=== PATIENT | female | born 1950 | race Caucasian/White ===

== ENCOUNTER 2017-11-20 18:03 | Observation (INO) | payer OTHER ==
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
[2017-11-20] MEDS ORDERED: ACETAMINOPHEN 500 MG TABLET (FP) PO ONE (19:55)
--- NOTE | 2017-11-20 20:22 | PDOC ---
Attending Attestation - Resident Resident Name: Joi Edward - ED Attending Attestation I have performed the following: I have examined & evaluated the patient, The case was reviewed & discussed with the resident, I agree w/resident's findings & plan, Exceptions are as noted <Stevenson Zhang - Last Filed: 11/20/17 20:21> - HPI HPI: 11/20/17 22:28 The patient is a 67 year old female with a past medical historey of COPD, HTN, hypercholesterolemia, smoking (3 cigarettes daily), and concussions, who presents to the ED with multiple facial abbreviations and unsteady gait following a mechanical fall. The patient was seen at urgent care and was told that she failed their neurological exam and that she should go to the ED. She reports left sided headache, left eye blurred vision, and unsteady gait. She denies any loss of consciousness or head trauma secondary to her fall. She denies any symptoms preceding her fall. She denies any shortness of breath, weakness, and substance abuse. - Physicial Exam PE: 11/20/17 22:28 GENERAL: Well-appearing, well-nourished. No apparent distress. HEENT: Normocephalic, atraumatic. PERRL, EOM intact. CARDIOVASCULAR: Normal S1, S2. Regular rate and rhythm. PULMONARY: Clear to auscultation bilaterally. ABDOMEN: Soft, non-distended, non-tender. EXTREMITIES: Normal ROM in all four extremities. No gross deformities. SKIN: Warm, dry. No rash NEUROLOGICAL: No focal neurological deficits. - Medical Decision Making 11/20/17 22:29 Documentation prepared by Quinn Argueta, acting as medical advisor for Stevenson Zhang DO. <Quinn Argueta - Last Filed: 11/20/17 22:29>
[2017-11-20] MEDS ORDERED: ACETAMINOPHEN 325 MG TABLET (FP) ONE (20:28)
[2017-11-20] MEDS ORDERED: ONDANSETRON 4 MG/2 ML VIAL IVPUSH ONE (20:55)
[2017-11-20] MEDS ORDERED: ONDANSETRON 8 MG TABLET (FP) PO ONE ×2 (20:56→20:58)
[2017-11-20 23:22] LABS: BASO % 0.7 % (0-2.0); EOS % 1.6 % (0-4.5); HEMATOCRIT 42.3 % (32.4-45.2); HEMOGLOBIN 14.5 GM/dL (10.7-15.3); LYMPH % 38.9 % (8-40); MCH 31.3 pg (25.7-33.7); MCHC 34.4 g/dl (32.0-36.0); MEAN CELL VOLUME 91.2 fl (80-96); MEAN PLT VOLUME 7.4 fl (7.5-11.1); NEUT % 50.8 % (42.8-82.8); PLATELET COUNT 266 K/MM3 (134-434); RBC 4.64 M/mm3 (3.60-5.2); RDW 13.5 % (11.6-15.6); WHITE BLOOD COUNT 10.7 K/mm3 (4.0-10.0)
[2017-11-20 23:34] LABS: INR 0.99 (0.82-1.09); PROTHROMBIN TIME (PATIENT) 11.2 SEC (9.7-13.0)
[2017-11-20 23:44] LABS: ALBUMIN 3.7 g/dl (3.4-5.0); ALK PHOS 105 U/L (45-117); ANION GAP 8 (8-16); BILIRUBIN,TOTAL 0.4 mg/dL (0.2-1.0); BLOOD UREA NITROGEN 21 mg/dL (7-18); CALCIUM 8.8 mg/dL (8.5-10.1); CHLORIDE 104 mmol/L (98-107); CO2 29 mmol/L (21-32); CREATININE 0.8 mg/dL (0.55-1.02); GLUCOSE,RANDOM 112 mg/dL (74-106); POTASSIUM 3.1 mmol/L (3.5-5.1); SGOT/AST 29 U/L (15-37); SGPT/ALT 51 U/L (12-78); SODIUM 141 mmol/L (136-145); TOT PROT 6.9 g/dl (6.4-8.2)
[2017-11-21] MEDS ORDERED: DEXTROSE 5%-0.45% SALINE 1,000 ML IV SCH (00:30)
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
[2017-11-21 02:32] LABS: URINE APPEARANCE SLCLOUDY; URINE BILIRUBIN NEGATIVE (<2.0 mg/dL); URINE COLOR YELLOW; URINE GLUCOSE (UA) NEGATIVE (NEGATIVE); URINE KETONE NEGATIVE (NEGATIVE); URINE LEUK ESTERASE NEGATIVE (NEGATIVE); URINE NITRITE NEGATIVE (NEGATIVE); URINE PROTEIN NEGATIVE (NEGATIVE); URINE UROBILINOGEN 4.0 E.U/dl mg/dL (0.2-1.0)
[2017-11-21 02:35] LABS: EPI CELLS RARE /HPF (FEW); URINE MUCUS FEW
[2017-11-21 02:45] VITALS: BMI 30.6
[2017-11-21 06:34] LABS: BASO % 0.5 % (0-2.0); EOS % 2.6 % (0-4.5); HEMATOCRIT 38.8 % (32.4-45.2); HEMOGLOBIN 13.6 GM/dL (10.7-15.3); LYMPH % 46.8 % (8-40); MCH 31.9 pg (25.7-33.7); MCHC 35.1 g/dl (32.0-36.0); MEAN CELL VOLUME 90.7 fl (80-96); MEAN PLT VOLUME 7.8 fl (7.5-11.1); MONO % 9.3 % (3.8-10.2); NEUT % 40.8 % (42.8-82.8); PLATELET COUNT 270 K/MM3 (134-434); RBC 4.28 M/mm3 (3.60-5.2); RDW 13.5 % (11.6-15.6); WHITE BLOOD COUNT 7.5 K/mm3 (4.0-10.0)
[2017-11-21 07:04] LABS: ANION GAP 8 (8-16); BLOOD UREA NITROGEN 18 mg/dL (7-18); CALCIUM 8.1 mg/dL (8.5-10.1); CHLORIDE 106 mmol/L (98-107); CO2 28 mmol/L (21-32); CREATININE 0.7 mg/dL (0.55-1.02); GLUCOSE,RANDOM 121 mg/dL (74-106); MAGNESIUM 2.2 mg/dL (1.8-2.4); PHOSPHOROUS 3.6 mg/dL (2.5-4.9); POTASSIUM 3.1 mmol/L (3.5-5.1); SODIUM 142 mmol/L (136-145)
[2017-11-21] MEDS ORDERED: POTASSIUM CHLORIDE TABS 20 MEQ TABLET.ER (FP) PO ONE (07:42)
[2017-11-21 08:56] LABS: CHOLESTEROL 95 mg/dL (50-200); TRIGLYCERIDES 85 mg/dL (35-160)
[2017-11-21 09:00] LABS: HDL CHOLESTEROL 36 mg/dL (40-60)
[2017-11-21] MEDS ORDERED: POTASSIUM CHLORIDE 30 MEQ in SODIUM CHLORIDE 285 ML IVPB ONE (10:00)
[2017-11-21] MEDS ORDERED: LOSARTAN 50MG/HCTZ 12.5MG 1 TAB (FP) PO SCH ×2 (10:00→10:25)
[2017-11-21] MEDS ORDERED: ASPIRIN 325 MG TABLET PO SCH (10:00)
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
--- NOTE | 2017-11-21 10:28 | PN ---
Progress Note, Physician Chief Complaint: Pt lying in bed in no acute distress. reports constant left orbital pressure/ headache. denies vomiting, weakness, chest pain, sob - Current Medication List Current Medications: Active Medications Atorvastatin Calcium (Lipitor -) 10 mg PO HS [facility] HCTZ/Losartan Potassium (Hyzaar -) 1 tab PO DAILY [facility] Dextrose/Sodium Chloride (D5-1/2ns -) 1,000 mls @ 75 mls/hr IV ASDIR MICHELLE Last Admin: 11/21/17 00:56 Dose: 75 mls/hr Potassium Chloride 30 meq/ (Sodium Chloride) 300 mls @ 100 mls/hr IVPB ONCE ONE Stop: 11/21/17 12:59 Metoprolol Succinate (Toprol Xl -) 50 mg PO [facility] - Objective Vital Signs: Vital Signs Temperature 98.2 F 11/21/17 08:36 Pulse Rate 74 11/21/17 08:36 Respiratory Rate 16 11/21/17 08:36 Blood Pressure 92/44 11/21/17 08:36 O2 Sat by Pulse Oximetry (%) 96 11/21/17 08:36 Constitutional: Yes: Well Nourished, No Distress HENT: Yes: Other (laceration, nose) Cardiovascular: Yes: WNL, Regular Rate and Rhythm. No: Gallop, Murmur Respiratory: Yes: WNL, Regular, CTA Bilaterally. No: SOB, Tachypnea, Wheezes Gastrointestinal: Yes: WNL, Normal Bowel Sounds, Soft. No: Distention, Tenderness Genitourinary: Yes: WNL Edema: No Integumentary: Yes: Laceration (nose) Wound/Incision: Yes: Clean/Dry, Reddened Neurological: Yes: WNL, Alert, Oriented. No: Confusion, Facial Droop Psychiatric: Yes: WNL, Alert, Oriented Labs: CBC, BMP 11/21/17 05:35 11/21/17 05:35 INR, PTT INR 0.99 (0.82-1.09) 11/20/17 22:00 - ....Imaging X-ray: Pending Cat Scan: Report Reviewed Problem List - Problems (1) Fall Assessment/Plan: mechanical head CT x 2 carotid US pending orthostatics ordered lumbar/thoracic imaging neg continue tele tolerated PT Code(s): W19.XXXA - UNSPECIFIED FALL, INITIAL ENCOUNTER Qualifiers: Encounter type: initial encounter Qualified Code(s): W19.XXXA - Unspecified fall, initial encounter (2) Facial contusion Assessment/Plan: nasal laceration noted pt reports persistent Left sided/orbital pressure facial bone xray ordered, r/o fracture ibuprofen prn Code(s): S00.83XA - CONTUSION OF OTHER PART OF HEAD, INITIAL ENCOUNTER Qualifiers: Encounter type: initial encounter Qualified Code(s): S00.83XA - Contusion of other part of head, initial encounter (3) Concussion Assessment/Plan: persistent left head/orbital pressure denies n/v repeat head CT w/out new changes Code(s): S06.0X9A - CONCUSSION W LOSS OF CONSCIOUSNESS OF UNSP DURATION, INIT Qualifiers: Encounter type: initial encounter Loss of consciousness presence/duration: without LOC Qualified Code(s): S06.0X0A - Concussion without loss of consciousness, initial encounter (4) CAD (coronary artery disease) Assessment/Plan: s/p cabg continue statin asa on hold Code(s): I25.10 - ATHSCL HEART DISEASE OF [place] CORONARY ARTERY W/O ANG PCTRS (5) Asthma Assessment/Plan: controlled Code(s): J45.909 - UNSPECIFIED ASTHMA, UNCOMPLICATED Qualifiers: Asthma severity: mild Asthma persistence: intermittent Asthma complication type: uncomplicated Qualified Code(s): J45.20 - Mild intermittent asthma, uncomplicated (6) HLD (hyperlipidemia) Assessment/Plan: stable continue statin Code(s): E78.5 - HYPERLIPIDEMIA, UNSPECIFIED (7) HTN (hypertension) Assessment/Plan: controlled continue hyzaar/metoprolol per bp parameters Code(s): I10 - ESSENTIAL (PRIMARY) HYPERTENSION Qualifiers: Hypertension type: essential hypertension Qualified Code(s): I10 - Essential (primary) hypertension
--- NOTE | 2017-11-21 11:29 | EKG ---
Test Reason : Blood Pressure : / mmHG Vent. Rate : 065 BPM Atrial Rate : 065 BPM P-R Int : 212 ms QRS Dur : 082 ms QT Int : 412 ms P-R-T Axes : 061 009 095 degrees QTc Int : 428 ms SINUS RHYTHM WITH 1ST DEGREE A-V BLOCK LOW VOLTAGE QRS SEPTAL INFARCT , AGE UNDETERMINED ABNORMAL ECG WHEN COMPARED WITH ECG OF 09-FEB-2010 15:26, [place] INTERVAL HAS INCREASED VENT. RATE HAS DECREASED BY 42 BPM SEPTAL INFARCT IS NOW PRESENT NONSPECIFIC T WAVE ABNORMALITY, WORSE IN ANTEROLATERAL LEADS Confirmed by RAE CASTELLANOS MD ([id number]) on 11/21/2017 11:29:04 AM Referred By: Confirmed By:RAE CASTELLANOS MD
--- NOTE | 2017-11-21 14:30 | CONSULT ---
Consult - text type - Consultation Consultation Note: NEUROLOGY CONSULTATION is greatly appreciated: This 67 yo RH woman with h/o HTN, COPD, Chol, ASHD on atorvastatin, losartan and metoprolol Is known to me from prior evaluations of left-sided headaches (migraines), insomnia, and nocturanl cramps and paresthesia. Last seen by me 06/08/15. Now admitted after tripping and falling on uneven side walk without prodromal symptoms or LOC. Came to the ER because of persistant bleding from laceration on her nose, left orbital pain, and a "whoosy feeling " in her head. CT of head x 2 (both reviewed): Last nights study is technicaaly suboptimal. Both studies are normal without evidence of traumatic changes. [place]: laceration on bridge of nose. Left orbital palpation tenderness without stepdown sign. No carotid bruits. No orbital ecchymoses or David's signs. NEURO: Awake, alert. In NAD MS,/speech: Normal CN II-XII: Normal without nystagmus. Motor: No drift or tremor. Normal strength, tone and bulk. Normal reflexes. Downgoing toes. Coord: No FTN dystaxia Sensory: Normal. Romberg neg Gait: Normal IMP: Mechanical fall with facial trauma Concussion without LOC R/O left orbital fracture/nasal fracture Migraine headaches RLS SUGGEST: Telemetry. Check orthostatic BP's R/o orbital and nasal fractures. Neuro f/u and EEG as out patient. Thank you very much, Jakob Perez MD
[2017-11-21] MEDS ORDERED: IBUPROFEN 400 MG TABLET (FP) PO PRN (15:14)
[2017-11-21 19:22] LABS: ANION GAP 5 (8-16); BLOOD UREA NITROGEN 15 mg/dL (7-18); CALCIUM 7.8 mg/dL (8.5-10.1); CHLORIDE 108 mmol/L (98-107); CO2 29 mmol/L (21-32); CREATININE 0.7 mg/dL (0.55-1.02); GLUCOSE,RANDOM 141 mg/dL (74-106); POTASSIUM 3.5 mmol/L (3.5-5.1); SODIUM 142 mmol/L (136-145)
[2017-11-21] MEDS ORDERED: ATORVASTATIN CA 10 MG TABLET (FP) PO SCH (22:00)
[2017-11-22 08:44] VITALS: BP 99/47; PULSE 54; TEMP 98.4
--- NOTE | 2017-11-22 11:09 | DS ---
Physical Examination Vital Signs: Vital Signs Temperature 98.4 F 11/22/17 08:43 Pulse Rate 54 L 11/22/17 08:43 Respiratory Rate 16 11/22/17 08:43 Blood Pressure 99/47 11/22/17 08:43 O2 Sat by Pulse Oximetry (%) 96 11/22/17 08:43 Constitutional: Yes: Well Nourished, No Distress HENT: Yes: Other (laceration on bridge of nose) Cardiovascular: Yes: WNL, Regular Rate and Rhythm. No: Murmur, Rub Respiratory: Yes: WNL, Regular, CTA Bilaterally Gastrointestinal: Yes: WNL, Normal Bowel Sounds, Soft. No: Distention, Tenderness Renal/: Yes: WNL Edema: No Neurological: Yes: WNL, Alert, Oriented Psychiatric: Yes: WNL, Alert, Oriented Labs: CBC, BMP 11/21/17 05:35 11/21/17 17:00 Discharge Summary Reason For Visit: FALL CONTUSION ON FACE ABNORMAL HEAD CT Current Active Problems Abnormal head CT (Acute) Abrasions of multiple sites (Acute) Acute ataxia (Acute) Asthma (Acute) CAD (coronary artery disease) (Acute) COPD (chronic obstructive pulmonary disease) (Acute) CVA (cerebral vascular accident) (Acute) Concussion (Acute) DVT prophylaxis (Acute) Facial contusion (Acute) Fall (Acute) Fall from ground level (Acute) HLD (hyperlipidemia) (Acute) HTN (hypertension) (Acute) Head trauma (Acute) Hypokalemia (Acute) Thoracic back pain (Acute) Hospital Course: is a pleasant 67 year old female who came in s/p mechanical fall. She reported having left sided head/orbital pressure. facial bone xrays neg. Head CT x 2 reviewed by Neurologist and is not concerning for acute events. Worked well with PT. Other laureano, pt is stable. medically stable for discharge home. f/ u as directed. Condition: Good - Instructions Diet, Activity, Other Instructions: resume prev diet , activity can resume aspirin tomorrow bps well controlled here, slightly low, please check BP before taking medications f/u as directed Referrals: Jakob Henao MD [Primary Care Provider] - 1 Week Jakob Perez MD [Staff Physician] - 2 Weeks Robert Gu MD [Staff Physician] - 2 Weeks Disposition: HOME - Home Medications Comprehensive Discharge Medication List: Ambulatory Orders Losartan 50Mg/Hctz 12.5MG [Hyzaar -] 1 tab PO DAILY 01/13/13 Metoprolol Succinate [Toprol XL -] 50 mg PO HS 01/13/13 Simvastatin [Zocor -] 20 mg PO HS 01/13/13 Aspirin [ASA -] 81 mg PO DAILY 04/23/15 Ibuprofen [Motrin -] 400 mg PO Q6H PRN tablet 11/22/17
== END 2017-11-22 13:15 | disposition home or self-care (01) ==
LOC: JER 18:03 → JERBED 11-21 00:30 → OBSVTOIN 11-21 00:30 → UNDOADMOB 11-21 00:30 → INTOOBSV 11-21 00:30 → UNDOADMOB 11-21 01:31 → JERBED 11-21 01:31 → J4S 11-21 02:04 → JERBED 11-21 02:04 → J4S 11-21 12:15 → UNDODISOB 11-22 13:15
PROVIDERS: ADMIT Internal Medicine; ATTEND Internal Medicine
PROC: 3E033GC Introduction of Other Therapeutic Substance into Peripheral Vein, Percutaneous Approach (ICD-10-PCS; principal; 2017-11-21)
PROC: 3E0337Z Introduction of Electrolytic and Water Balance Substance into Peripheral Vein, Percutaneous Approach (ICD-10-PCS; 2017-11-21)
DX: S06.0X0A Concussion without loss of consciousness, initial encounter (principal); S00.83XA Contusion of other part of head, initial encounter; S00.81XA Abrasion of other part of head, initial encounter; T07.XXXA Unspecified multiple injuries, initial encounter; R27.8 Other lack of coordination; E87.6 Hypokalemia; R93.0 Abnormal findings on diagnostic imaging of skull and head, not elsewhere classified; M54.6 Pain in thoracic spine; Y92.89 Other specified places as the place of occurrence of the external cause; F17.210 Nicotine dependence, cigarettes, uncomplicated; I10 Essential (primary) hypertension; I25.10 Atherosclerotic heart disease of native coronary artery without angina pectoris; E78.5 Hyperlipidemia, unspecified; J44.9 Chronic obstructive pulmonary disease, unspecified; J45.909 Unspecified asthma, uncomplicated; Z79.82 Long term (current) use of aspirin; Z95.1 Presence of aortocoronary bypass graft; Z91.010 Allergy to peanuts; Z88.1 Allergy status to other antibiotic agents; Z88.0 Allergy status to penicillin; W18.39XA Other fall on same level, initial encounter; Z91.81 History of falling; Y93.89 Activity, other specified
CPT/HCPCS: 36415; 70150-TC-FY; 70450-TC; 71046-TC-FY; 72070-TC-FY; 72125-TC; 80048; 80053; 80061; 81003; 81015; 83721; 83735; 84100; 85025; 85610; 86850; 86900; 86901; 87086; 93005; 93010; 93880-TC; 96365; 96366; 97116-GP; 97161-GP; 99285-25; G0378

== ENCOUNTER 2019-04-19 06:41 | Emergency (ER) | payer OTHER ==
[2019-04-19 06:57] VITALS: TEMP 97.6; BMI 31.2
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
[2019-04-19] MEDS ORDERED: ACETAMINOPHEN 325 MG TABLET (FP) PO ONE (07:52)
[2019-04-19] MEDS ORDERED: ONDANSETRON *ODT* 4 MG TABLET SL ONE (07:53)
[2019-04-19] MEDS ORDERED: LIDOCAINE 5% TOPICAL PATCH TP ONE (07:53)
[2019-04-19] MEDS ORDERED: ACETAMINOPHEN 325 MG TABLET (FP) ONE (07:55)
[2019-04-19] MEDS ORDERED: ONDANSETRON *ODT* 4 MG TABLET ONE (07:56)
[2019-04-19] MEDS ORDERED: LIDOCAINE 5% TOPICAL PATCH ONE (07:56)
[2019-04-19 09:50] VITALS: BP 128/77; PULSE 60
[2019-04-19] MEDS ORDERED: METHOCARBAMOL 500 MG TABLET PO ONE (10:47)
[2019-04-19] MEDS ORDERED: METHOCARBAMOL 500 MG TABLET ONE (10:57)
[2019-04-19] MEDS ORDERED: LIDOCAINE PATCH REMOVAL MC SCH (22:00)
== END 2019-04-19 11:44 | disposition home or self-care (01) ==
LOC: JER 06:41
DX: S00.83XA Contusion of other part of head, initial encounter (principal); M62.838 Other muscle spasm; W06.XXXA Fall from bed, initial encounter; Y93.89 Activity, other specified; Y92.013 Bedroom of single-family (private) house as the place of occurrence of the external cause; Y99.8 Other external cause status; I25.10 Atherosclerotic heart disease of native coronary artery without angina pectoris; I10 Essential (primary) hypertension; Z95.1 Presence of aortocoronary bypass graft; J44.9 Chronic obstructive pulmonary disease, unspecified; E78.5 Hyperlipidemia, unspecified; Z79.01 Long term (current) use of anticoagulants; Z91.81 History of falling; Z88.0 Allergy status to penicillin; Z88.1 Allergy status to other antibiotic agents; Z91.010 Allergy to peanuts; Z88.8 Allergy status to other drugs, medicaments and biological substances
CPT/HCPCS: 70450-TC; 72125-TC; 73130-TC-RT-FY; 99282-25; Q0162

== ENCOUNTER 2021-01-02 20:11 | Emergency (ER) | payer OTHER ==
[2021-01-02 20:33] VITALS: BMI 35.1
[2021-01-02] MEDS ORDERED: ASPIRIN 81 MG CHEWABLE TABLETS PO ONE (21:41)
[2021-01-02 21:52] LABS: BASO % 0.6 % (0-2.0); EOS % 2.7 % (0-4.5); HEMOGLOBIN 14.5 GM/dL (10.7-15.3); LYMPH % 37.6 % (8-40); MCH 31.4 pg (25.7-33.7); MCHC 34.6 g/dl (32.0-36.0); MEAN CELL VOLUME 90.8 fl (80-96); MEAN PLT VOLUME 7.2 fl (7.5-11.1); MONO % 8.2 % (3.8-10.2); NEUT % 50.9 % (42.8-82.8); PLATELET COUNT 275 10^3/uL (134-434); RBC 4.63 M/mm3 (3.60-5.2); RDW 13.6 % (11.6-15.6); WHITE BLOOD COUNT 8.9 K/mm3 (4.0-10.0)
[2021-01-02] MEDS ORDERED: ASPIRIN 81 MG CHEWABLE TABLETS ONE (21:55)
[2021-01-02 21:58] LABS: INR 0.91 (0.83-1.09); PROTHROMBIN TIME (PATIENT) 11.1 SEC (9.7-13.0)
[2021-01-02 22:01] LABS: ACTIVATED PTT 29.4 SECONDS (25.2-36.5)
[2021-01-02 22:11] LABS: CHLORIDE 105 mmol/L (98-107); SODIUM 141 mmol/L (136-145)
[2021-01-02 22:15] LABS: CALCIUM 9.4 mg/dL (8.5-10.1)
[2021-01-02 22:16] LABS: ALBUMIN 3.8 g/dl (3.4-5.0); ANION GAP 6 MMOL/L (8-16); BLOOD UREA NITROGEN 21.2 mg/dL (7-18); CO2 29 mmol/L (21-32); GLUCOSE,RANDOM 139 mg/dL (74-106)
[2021-01-02 22:19] LABS: CREATININE 0.6 mg/dL (0.55-1.3); SGOT/AST 20 U/L (15-37); SGPT/ALT 39 U/L (13-61)
[2021-01-02 22:20] LABS: BILIRUBIN,TOTAL 0.2 mg/dL (0.2-1); TOT PROT 6.8 g/dl (6.4-8.2)
[2021-01-02 22:22] LABS: ALK PHOS 79 U/L (45-117)
[2021-01-02 23:42] VITALS: BP 117/92; PULSE 72; TEMP 98.1
== END 2021-01-02 23:46 | disposition left against medical advice (07) ==
LOC: JER 20:11
DX: R07.9 Chest pain, unspecified (principal)
CPT/HCPCS: 36415; 71045-TC-FY; 80053; 83880; 84484; 85025; 85379; 85610; 85730; 93005; 93010; 99285-25